=== PATIENT | female | born 1990 | race Caucasian/White ===

== ENCOUNTER 2016-05-10 22:19 | Emergency (ER) | payer SELFPAY ==
[~2016-05-10 22:19] MED LIST: NO HOME MEDICATION XX; NORCO 5-325 TA1 EACH PO; PENICILLIN V P500 M1 PO
[2016-05-10] MEDS ORDERED: BACTRIM DS TAB1 EAC2 PO (22:55)
[2016-05-21] MEDS ORDERED: NO HOME MEDICATION XX (01:05)
== END 2016-05-10 23:10 ==
LOC: EDMED 22:19
DX: R22.0 Localized swelling, mass and lump, head (principal); F17.200 Nicotine dependence, unspecified, uncomplicated